=== PATIENT | female | born 1955 | race Caucasian/White ===

== ENCOUNTER → 2021-07-14 13:36 | Outpatient (CLI) | payer MEDICARE, SELFPAY ==
[2021-07-14 15:40] LABS: COVID19 -Nasal RAPID Negative (Negative)
== END ==
PROVIDERS: Visit Provider Physical Medicine & Rehabilitation
DX: Z20.822 Contact with and (suspected) exposure to COVID-19 (principal)
CPT/HCPCS: 87635; C9803

== ENCOUNTER 2021-07-17 08:30 | Day surgery (SDC) | payer MEDICARE, SELFPAY ==
[2021-07-02 09:47] VITALS: BMI 41.6
[2021-07-17] VITALS (12 sets, daily range): BP systolic 106–138; BP diastolic 49–75; PULSE 65–80; RESP 10–20; TEMP 35.8–36.4; O2SAT 95–100; BMI 41.6
[2021-07-17] MEDS: ACETAMINOPHEN 325 MG TABLET 975 MG PO (08:59)
[2021-07-17] MEDS: CELECOXIB 200 MG CAPSULE PO (09:00)
[2021-07-17] MEDS: PREGABALIN 75 MG CAPSULE PO (09:01)
[2021-07-17] MEDS: LACTATED RINGERS 1,000 ML 42 ML IV (09:40)
[2021-07-17] MEDS: VANCOMYCIN 1,000 MG/200 ML PIGGYBACK 200 MG IV (10:15)
--- NOTE | 2021-07-17 10:24 | PM.PREOP ---
Pre-operative Note COVID-19 COVID-19 status: Negative Interval Note History & Physical reviewed/Exam performed by Physician: Yes Changes to H&P: No
--- NOTE | 2021-07-17 10:35 | PM.OP.1 ---
Operative Date/Time/Diagnoses Date of procedure: 07/17/21 Time of procedure: 10:40 Pre-op diagnosis: left knee OA Post-op diagnosis: same Procedure & Clinicians Procedure: Left total knee arthroplasty Same procedure as scheduled: Yes Indications: The patient has had progressively worsening left knee pain with radiographic changes consistent with arthritis. Non-operative management has failed and the patient has requested total knee replacement. The risks, benefits and alternatives to surgery were discussed with the patient prior to proceeding. Risks discussed included, but were not limited to, failure to relieve pain, stiffness, infection, nerve damage, deep venous thrombosis, pulmonary embolism, stroke, coma, heart attack, permanent paralysis and , as well as the potential need for eventual revision of the prosthetic. Surgeon: Tana Myrick Sales Support Representative: Felicity Granger Anesthesia Type: General and Spinal Operative Notes Findings: Severe left knee OA, adequate stability Closure Type: primary Specimen(s): none sent Prosthetic devices, grafts, tissues, transplants, or devices: Myrick and nephew size 5 left femoral component, size 3 left tibia, +9 poly, 35 x 7-1/2 mm patella Applied: drain(s) Estimated Blood Loss (mL): 250 Blood products transfused: none Tourniquet time (min): 40 Procedure in detail: The patient was seen in the pre-operative area, where the patient identified the left knee as the operative site and this was marked with my initials. The patient received pre-operative antibiotics, and was taken to the operating room and placed on the operative table in the supine position. After satisfactory anesthesia, a night time nanny out was performed. The left leg was encircled with a tourniquet about the proximal thigh, and the leg was prepared from the toes to the tourniquet with ChloroPrep in the usual fashion and draped through sterile drapes. The leg was elevated and exsanguinated with Eschmark bandage and the tourniquet inflated to [250] mmHg pressure. The knee was approached through an approximately 18 cm incision centered over the patella and carried into the knee through a medial parapatellar arthrotomy. A portion of the medial and lateral meniscus was resected. Soft tissue was carefully mobilized around the patella the patella was measured with a caliper. Bone was resected from the patella and the patellar height was reconstituted with up an appropriate sized patellar component. A cover was then placed on the patella. A small amount of additional medial and lateral meniscus was resected. The distal femur was cut at 5?. A [+2] cut was used. It looked like an appropriate distal femoral cut and the cut was made without difficulty. An extramedullary guide was used for the tibial cut. 10 mm was resected off the least affected side.The tibia was prepared. The rotation was assessed. The patient was placed in extension residual medial and lateral meniscus as well as any residual bone was carefully resected. [No] additional tibia was resected. Hemostasis was achieved especially posteriorly. Additional local was injected into the posterior capsule. The extension gap was assessed and additional releases for gap balancing were performed as necessary. It was checked with the gap rotary shear worker helper. The femoral component was trial was placed and the notch was finished. The rotation was assessed and the appropriate size femoral guide was placed on the distal femur and finishing cuts were made. There was no evidence of notching. The anterior, posterior and chamfer cuts were then made. The posterior osteophytes and soft tissues were then removed. The posterior capsule was injected with part of a mixture of 60 ml 0.25% Marcaine mixed with 20 ml Exparel for post operative pain control. The remainder of this mixture was injected into the capsule and subcutaneous tissues during cement curing. The tibial and femoral components were then placed and the knee placed through a range of motion. Range of motion was [0-130], with good stability throughout the range. The trials were then removed, and the tibia was finished. The bone was prepared with pulsatile lavage, and dried with a sponge. Cement was applied and the final prosthetics placed. Excess cement was removed during and after cement curing. A brief Betadine soak was performed. After confirming there was no extruded cement posteriorly, the final tibial insert was placed. The knee was copiously irrigated and the tourniquet deflated. Hemostasis was obtained with the Bovie. A drain was placed and brought out superolaterally. The capsule was closed with interrupted nonabsorbable suture. The subcutaneous layer was closed with barbed sutures, and the skin with a running 3-0 V-Lock suture and skin juan carlos. A Lilian dressing was applied and the patient was taken to recovery having tolerated the procedure well. Complications: none Post-operative Condition: stable Disposition: Acute Care Plan for aftercare: The patient will be maintained on a standard total knee replacement protocol with weight bearing as tolerated. The patient will receive aspirin and sequential compression devices for DVT prophylaxis. The patient will be discharged home when safe for the home environment.
--- NOTE | 2021-07-17 11:00 | DI.RAD.S_ITS ---
PROCEDURE: XR KNEE LT 1TO2V INDICATIONS: LT TOTAL KNEE TECHNIQUE: 2 view(s) of the knee acquired. COMPARISON: None. FINDINGS: Bones: Patient is status post knee joint arthroplasty. Hardware components are in expected positions. Visualized bony structures are intact. Soft tissues: Overlying postoperative changes are noted. IMPRESSION: Postop changes from left total knee arthroplasty with anatomic left knee alignment. Dictated by: Hector Mcmanus M.D. on 07/17/2021 at 14:40 Approved by: Hector Mcmanus M.D. on 07/17/2021 at 14:40
[2021-07-17] MEDS: CEFAZOLIN 2 GM/20 ML SYRINGE IV ×2 (11:25→19:56)
[2021-07-17] MEDS: TRANEXAMIC ACID 1,000 MG VIAL 2000 MG INJ ×2 (11:27→13:05)
--- NOTE | 2021-07-17 11:39 | SUR.OPER ---
Supine on padded OR bed. Pillow under head, arms secured on padded armboards <90 degree abduction. Safety belt across torso. Non-operative leg secured with tape over blanket over lower leg. Operative leg secured in DeMayo positioner. Foam padded brace at thigh of operative leg.
[2021-07-17] MEDS: BUPIVACAINE 0.25% (PF) 60 ML, EPINEPHrine 0.3 MG INJ (11:43)
[2021-07-17] MEDS: BUPIVACAINE LIPOSOME 266 MG/20 ML VIAL INJ (11:44)
[2021-07-17] MEDS: HYDROMORPHONE 2 MG INJ IV (13:55)
[2021-07-17] MEDS: hydrOXYzine 50 MG/ML INJ 25 MG IM (13:55)
[2021-07-17] MEDS: ONDANSETRON 4 MG/2 ML INJ IV (13:55)
[2021-07-17] MEDS: OXYCODONE IR 5 MG TABLET PO (13:56)
[2021-07-17] MEDS: LACTATED RINGERS 1,000 ML 100 ML IV (15:26)
--- NOTE | 2021-07-17 16:34 | PC.NURSE ---
Admit note: Patient admitted from PACU to room 214, sleeping/drowsy but arouses easily. Received on O2 at 2L via NC, 95%. SCD's and IVF initiated on arrival. IS at bedside, unable to fully demonstrate until a more wakeful state. Oriented to room, environment, and plan of care. High fall risk precautions initiated, call light within reach.
[2021-07-17] MEDS: IBUPROFEN 400 MG TABLET PO ×2 (17:36→21:36)
[2021-07-17] MEDS: ATORVASTATIN 20 MG TABLET 10 MG PO (21:34)
[2021-07-17] MEDS: DOCUSATE 100 MG CAPSULE PO (21:34)
[2021-07-17] MEDS: ASPIRIN EC 81 MG TABLET PO (21:35)
[2021-07-17] MEDS: MONTELUKAST 10 MG TABLET PO (21:36)
[2021-07-17] MEDS: ACETAMINOPHEN 325 MG TABLET 650 MG PO (21:36)
[2021-07-17] MEDS: CALCIUM CARBONATE 500 MG TAB PO (22:54)
[2021-07-18 00:30] VITALS: BP 103/46; PULSE 76; RESP 14; TEMP 36.1; O2SAT 94
[2021-07-18] MEDS: IBUPROFEN 400 MG TABLET PO ×4 (00:38→12:25)
[2021-07-18] MEDS: LACTATED RINGERS 1,000 ML 100 ML IV (01:19)
[2021-07-18] MEDS: CEFAZOLIN 2 GM/20 ML SYRINGE IV (03:20)
[2021-07-18 04:45] VITALS: BP 107/50; PULSE 67; RESP 14; TEMP 36.1; O2SAT 100
[2021-07-18 06:06] LABS: Hematocrit 27.4 % (36-46); Hemoglobin 9.2 g/dL (12.0-16.0)
[2021-07-18 08:15] VITALS: BP 94/47; PULSE 69; RESP 16; TEMP 36; O2SAT 98
[2021-07-18] MEDS: DOCUSATE 100 MG CAPSULE PO (09:13)
[2021-07-18] MEDS: ACETAMINOPHEN 325 MG TABLET 650 MG PO ×2 (09:14→14:53)
[2021-07-18] MEDS: ASPIRIN EC 81 MG TABLET PO (09:14)
[2021-07-18] MEDS: SERTRALINE 50 MG TABLET 100 MG PO (09:14)
--- NOTE | 2021-07-18 10:17 | P.DS_ITS ---
History of Present Illness History of Present Illness Date Patient Seen: 07/18/21 Time Patient Seen: 09:00 Chief complaint: OPB Narrative: Operative Date/Time/Diagnoses Date of procedure: 07/17/21 Time of procedure: 10:40 Pre-op diagnosis: left knee OA Post-op diagnosis: same Procedure & Clinicians Procedure: Left total knee arthroplasty Same procedure as scheduled: Yes Indications: The patient has had progressively worsening left knee pain with radiographic changes consistent with arthritis. Non-operative management has failed and the patient has requested total knee replacement. The risks, benefits and alternatives to surgery were discussed with the patient prior to proceeding. Risks discussed included, but were not limited to, failure to relieve pain, stiffness, infection, nerve damage, deep venous thrombosis, pulmonary embolism, stroke, coma, heart attack, permanent paralysis and , as well as the potential need for eventual revision of the prosthetic. Surgeon: Tana Myrick Laborer Electroplating: Felicity Granger Anesthesia Type: General and Spinal Operative Notes Findings: Severe left knee OA, adequate stability Closure Type: primary Specimen(s): none sent Prosthetic devices, grafts, tissues, transplants, or devices: Myrick and nephew size 5 left femoral component, size 3 left tibia, +9 poly, 35 x 7-1/2 mm patella Applied: drain(s) Estimated Blood Loss (mL): 250 Blood products transfused: none Tourniquet time (min): 40 Discharge Providers Provider Date of admission: 07/17/2021 Discharge Date: 07/18/21 Primary care physician: Alex Young ND Consults: 07/17/21 07:46 Consult to Anesthesiology Routine Comment: Consulting Provider: Anesthesiologist Reason for consultation: Regional block for post operative pain control 07/17/21 08:38 Consult to Anesthesiology Routine Comment: Consulting Provider: Anesthesiologist Reason for consultation: Regional block for post operative pain control 07/17/21 12:24 Consult to Physician Routine Comment: consult to primary care provider for followup Consulting Provider: Tana Myrick Reason for consultation: Positive STOP BANG, management of obstructive sleep apnea Has provider been notified: Yes 07/17/21 13:42 Consult to Respiratory Therapy Evaluate & Treat Comment: s/p TKA w spinal morphine, JOSE/CPAP, obese Physician Instructions: Evaluate and treat 07/17/21 14:54 Consult to Discharge Planning Routine Comment: Consult to Physical Therapy Evaluate & Treat Comment: Physician Instructions: postop TKA protocol Consult to Respiratory Therapy Evaluate & Treat Comment: Physician Instructions: Evaluate and treat Discharge provider: Felicity Granger PA-C Summary Hospital Course Discharge Diagnosis: s/p L TKA Hospital Course: Ms Chow'fabiola hospital course was unremarkable. On POD# 1, she was feeling well and wanted to go home. She had been up to the bathroom multiple times and was voiding without difficulty. No N/V. Pain well-controlled with oral medications. She has her daughter and son-in-law at home for help. She was evaluated by PT prior to discharge. Exam Vital Signs (past 8 hours): - 07/18/ 04:45 07/18/21 08:15 Temperature 97.0 F L 96.8 F L Pulse Rate 67 69 Respiratory Rate 14 16 Blood Pressure 107/50 L 94/47 L Pulse Oximetry 100 98 Oxygen Delivery Method Nasal Cannula Oxygen Flow Rate 2 Narrative Exam Narrative: 5/5 strength in hip flexors, quadriceps, hamstrings, DF, PF, EHL bilaterally. Sensation intact throughout BLE. Calves soft, compressible, nontender and without palpable cords or masses. THOR dressing CDI. Objective Labs Result Diagrams: 07/18/21 05:40 Labs: Laboratory Results - last 24 hr 07/18/21 05:40 Hgb 9.2 L Hct 27.4 L PFSH Medical History (Updated 07/02/21 @ 10:[address] RN) Anesthesia Anxiety disorder Chronic bronchitis Chronic edema Depression Diabetes Essential tremor HLD (hyperlipidemia) Kidney stone JOSE (obstructive sleep apnea) Osteoarthritis Poor vision RBBB (right bundle branch block) Seasonal allergies Venous insufficiency (chronic) (peripheral) Surgical History (Updated 07/18/21 @ 10:13 by Felicity Granger PA-C) History of partial hysterectomy Hx of bariatric surgery (~2006) Hx of breast biopsy Social History household members: children Smoking Status: Never smoker alcohol intake: former Discharge Assessment & Plan Assessment and Plan Assessment: 1) POD# 1 S/p left total knee arthroplasty. 2) Acute anemia from expected blood loss during surgery. 3) Morbid obesity. Plan of Treatment: Discharge home w/ multimodal pain control, outpt PT. Discharge Plan Discharge Plan Patient Disposition: Home Discharge orders & Medications Discharge Orders: Discharge (Order); Ordered 07/18/21 Ordered By: Felicity Granger Prescriptions: New acetaminophen 325 mg Tablet 650 mg PO TID Qty: 90 2RF aspirin 81 mg Tablet,Delayed Release (Dr/Ec) 81 mg PO BID Qty: 90 0RF docusate sodium 100 mg Capsule 100 mg PO BID PRN (Reason: constipation) Qty: 60 2RF oxycodone 5 mg Tablet 5 mg PO Q4H PRN (Reason: pain, severe) Qty: 60 0RF Continued sertraline 100 mg Tablet 100 mg PO DAILY 0RF simvastatin 20 mg Tablet 20 mg PO BEDTIME 0RF ibuprofen 200 mg Tablet 600 mg PO QD-BID PRN (Reason: Pain) 0RF montelukast 10 mg Tablet 10 mg PO BEDTIME 0RF hydrochlorothiazide 25 mg Tablet 25 mg PO DAILY 0RF Ozempic 0.25 mg or 0.5 mg(2 mg/1.5 mL) Pen Injector 0.5 mg SUBCUT QWEEK 0RF Rx Instructions: for 4 doses Follow up/Referrals: Alex Young ARNP [Primary Care Provider] - Tana Myrick MD [Physician] - As previously scheduled (Follow up w/ Dr Myrick on 08/01/2021 @ 2:00 pm at [facility] in [place].) Diet/Activity/Treatments Diet: Diet as Tolerated Activity: Walk frequently! Cold/Heat Therapy: Ice to knee as needed for pain. Skin/Wound/Dressing Care Report to your healthcare provider any signs of infection, such as:: chills, fever, night sweats, increased pain, unusual drainage and unusual redness Dressing: May remove ABRAHAM wrap and shower. Leave THOR dressing in place until follow up appointment. When the battery expires after several days, it will beep, and you can detach the part of the tubing with the battery pack on it and throw it away. Visit Report/Discharge Packet Instructions: DI for Knee Replacement Stand Alone Forms: Surgery Discharge Discharge Data Primary Care Provider: Alex Young Attending Provider: Tana Myrick
[2021-07-18] MEDS: OXYCODONE IR 5 MG TABLET PO (10:33)
--- NOTE | 2021-07-18 10:47 | PT.IIE ---
Current Diagnoses Unilateral primary osteoarthritis, left knee (07/17/21) Presence of left artificial knee joint (07/17/21) Surgery Performed Operation Date: 07/17/21 10:45 Actual Procedures p Total Knee Arthroplasty(Left) - Tana Myrick MD Medical History (Last Updated 07/02/21 @ 10:[address] RN) Anesthesia Anxiety disorder Chronic bronchitis Chronic edema Depression Diabetes Essential tremor HLD (hyperlipidemia) Kidney stone JOSE (obstructive sleep apnea) Osteoarthritis Poor vision RBBB (right bundle branch block) Seasonal allergies Venous insufficiency (chronic) (peripheral) Physical Therapy Inpatient Evaluation/Re-Eval M1 PT/OT-IP Prior Functional Status Start: 07/18/21 13:36 Freq: NEEDED Status: Active Protocol: Document 07/18/21 10:47 AB (Rec: 07/18/21 13:49 AB [id number]) Medical Review Prior Functional Status Medical History Reviewed Yes Communication able to make needs known Mobility and Gait pt stated that she is independent with all mobilities and ambulation without AD Social History Household Members children Living Arrangements House Number of Floors (Floors) Two Floors Number of Stairs To Enter/Railing? pt will stay on main level of the house 1 platform step to porch + 3 steps L rail to enter the house Home Environment High Toilet,Tub/Shower Home Equipment Front Wheel Walker,Straight Cane,Hand Held Shower,Grab Bars In Shower Additional Social History Comment pt stated that she has her daughter to assist her M2 PT-IP Current Condition Start: 07/18/21 13:36 Freq: NEEDED Status: Active Protocol: Document 07/18/21 10:47 AB (Rec: 07/18/21 13:49 AB [email or web address]) Physical Therapy Current Condition Current Condition Evaluation Date 07/18/21 Treatment Diagnosis s/p L TKA; difficulty in walking Onset Date 07/17/21 M3 PT-IP Subjective Start: 07/18/21 13:36 Freq: NEEDED Status: Active Protocol: Document 07/18/21 10:47 AB (Rec: 07/18/21 13:49 AB [email or web address]) Subjective Physical Therapy Visit Type Type Initial Evaluation Visit Start Time 10:47 Visit Stop Time 11:45 Total Visit Minutes 58 Number of PROGRESSIVE ASSEMBLER AND FITTER Visits 0 Physical Therapy Visit Comments Patient Comments agreeable to do PT Therapy Pain Assessment Pain When Pain Assessed At Rest Pain Present Pain Present Pain Reported Location Left Knee Intensity 2 Scale Used Numeric (0 - 10) Pain Management Techniques Apply Cold,Elevation, Modification of Treatment,Re- positioning,Timing of Activity with Medications M4 PT-IP Mobility and Gait Start: 07/18/21 13:36 Freq: NEEDED Status: Active Protocol: Document 07/18/21 10:47 AB (Rec: 07/18/21 13:49 AB [id number]) PT-Bed Mobility Assessment Supine to Sit Supine to Sit Standby Assistance Sit to Supine Sit to Supine Standby Assistance PT-Transfer Assessment Sit to and From Stand Sit to and from Stand Standby Assistance,Contact Guard Assistance,1 Person Assistance,Use of Upper Extremities Equipment Transfer Assistive Device Gait Belt,Front Wheeled Walker Orthotic/Prosthetic Devices or Brace: No Transfers Transfer Destination Chair Transfer Technique ambulated Transfer Ability Level of Assist Standby Assistance,Contact Guard Assistance,1 Person Assistance,Use of Upper Extremities Comments Mobility Comments BP in supine: 117/48. pt completed supine to sit SBA. able to sit on EOB SBA. BP in sittin/48. no c/o dizziness. completed sit to stand CGA and ambulated in room using FWW SBA to CGA ~ 15 ft. pt sat on chair. BP checekd: 110/49. pt agreed to do stairs. completed sit to stand from the chair SBA and ambulated to the hallway ~ 125 ft using FWW SBA to occasional CGA. educated pt on stair climbing. pt completed up/down platform step using FWW CGA and completed 3 steps holding on to L rail with B hands CGA. tp stated that she is dizzy. assisted ack to her room. BP checked: 117/48. pt ambulated using FWW back to the bed SBA. completed sit to supine SBA. positioned pt in bed. call light and table placed within reach. Gait Assessment Gait Gait Assistance Required: Standby Assistance,Contact Guard Assist,1 Person Assist Distance (Feet) 125 Able to Maintain Weight Bearing Status Yes During Gait Assistive Devices Assistive Device Gait Belt,Front Wheeled Walker Orthotic/Prosthetic Devices or Brace: No Gait Deviations General Gait Pattern Decreased Stride Length, Decreased Feet Clearance Factors Limiting Gait Function Factors Limiting Gait Function Decreased Activity Tolerance, Decreased Strength,Limited Range of Motion,Pain,Poor Balance Stair Climbing Assessment Evaluation Level of Assist On Stairs Contact Guard Assistance Devices Stair Climbing Assistive Devices Left Railing Comments Stair Climbing Comments pls refer to mobility section for details PT-Balance Assessment Sitting Balance and Reactions Static Sitting Balance Ability Normal Dynamic Sitting Balance Ability Normal Standing Balance and Reactions Static Standing Balance Ability Good Dynamic Standing Balance Ability Fair Device Used FWW M5 PT-IP Objective Assessments Start: 07/18/21 13:36 Freq: NEEDED Status: Active Protocol: Document 07/18/21 10:47 AB (Rec: 07/18/21 13:49 AB [email or web address]) Orientation Orientation/Cognition Level of Alertness Alert Orientation Name,Place,Situation Language Function Ability No Deficits Noted Safety Awareness Decreased Safety Awareness Memory Description No Deficits Noted Gross Range of Motion Lower Extremity ROM Assessment Within Functional Limits Strength Lower Extremity Strength Assessment Left Impaired Hip 4/5 Knee 4-/5 Sensation Assessment Sensation Gross Sensation WNL Muscle Tone Muscle Tone WNL Yes M6 PT-IP Treatment Start: 07/18/21 13:36 Freq: NEEDED Status: Active Protocol: Document 07/18/21 10:47 AB (Rec: 07/18/21 13:49 AB [email or web address]) Physical Therapy Treatment Education Education Provided Precautions,Weight Bearing Status,Post-Op Packet,Safety M7 PT-IP Assessment and Plan Start: 07/18/21 13:36 Freq: NEEDED Status: Active Protocol: Document 07/18/21 10:47 AB (Rec: 07/18/21 13:49 AB [email or web address]) PT Summary Assessment and Plan Potential Rehabilitation Potential Good Status of Condition at Evaluation Stable Summary Impairments Pain,ROM,Strength,Balance, Coordination,Sensation,Tone, Cognition,Bed Mobility, Transfers,Gait,Activity Tolerance Assessment Summary pt requiring SBA to CGA with mobility using FWW. pt will have her daughter to assist her at home and may go home when medically stable. pt stated that she has outpt PT scheduled. Goals Bed Mobility Goal Independent Transfer Goal Independent,Front Wheeled Walker Gait Goal Independent,Front Wheel Walker Gait Distance 250 Other Goals up/down 1 platform step using FWW mod I up/down 3 steps L rail mod I Frequency of Treatment Frequency Of Treatment Twice a Day Treatment Plan Physical Therapy Treatment Plan Bed Mobility Training,Transfer Training,Gait Training, Therapeutic Exercise,Balance Retraining,Post Op Education, Discharge Planning,Hot or Cold Pack,Neuromuscular Re-ed, Coordination Retraining,Manual Therapy Weight Bearing Status Weight Bearing Status Weight Bear as Tolerated Allowed Weight Bearing Amount (enter % LLE WBAT or #) (%) Recommendations To Nursing Amount of Assist Needed 1 Person Assist Discharge Recommendations PT Discharge Recommendations Home with Assistance,Acute Rehab Transportation Needs at Discharge Private Vehicle
--- NOTE | 2021-07-18 11:18 | CM.DANOTE ---
DCP: Case received, EMR reviewed and met with patient. Introduced self and role. Was able to obtain information regarding patient's baseline activity level at home prior to surgery. DCP assessment completed with information currently available. Patient is a 66 year old female who admitted yesterday morning to the care of the orthopedic team. PCP: Dr. Young. Payer: confirmed: [facility]. Patient came to the hospital via private vehicle for a surgical procedure. Patient had left total knee arthroplasty. Patient has history of osteoarthritis. Met with patient in her room. She was sitting up in bed, alert and oriented. She resides in [place] with daughter, Charmaine. At her baseline, she is independent, and does have a cane for home use. P: Patient has discharge orders for home today, pending her working with physical therapy. Phyllis Moore RN/Television News Reporter Discharge Planning/Care Management CM Discharge Assessment Start: 07/18/21 11:17 Freq: Status: Active Protocol: Document 07/18/21 11:17 (Rec: 07/18/21 11:18 [id number]) Discharge Planning Assessment Assigned Harbor Tug Captain Phyllis Moore RN/Television News Reporter Advance Directives? No History Provided By Patient,Medical Record Prior Living Arrangements House Household Members children Type of transporation used prior to Drives own vehicle admit DME Already Rented / Owned Cane Patient/Family Preference OP PT Therapy Barriers to Discharge No Discharge Plan Home Transportation Arrangement Family Referrals Initiated None needed Whiteboard Updated in Patient Room with Yes name and ext. # of Harbor Tug Captain Review Status In Process Next Review Type Continued Stay Review Pre-Anesthesia Assessment Start: 07/02/21 09:47 Freq: Status: Complete Protocol: Document 07/02/21 09:47 CAB (Rec: 07/02/21 10:47 CAB [id number]) Pre-Anesthesia Assessment Patient Information Reviewed Via Phone Assessment Assessment Completed With Patient Diagnostic Results BMP/CMP,CBC,EKG Comment Outside labs/ECG scanned COVID screen 07/14/21 Primary Care Provider Alex Young Medical Clearance Received Yes Seen Specialist in Last 12 Months Yes Specialist Seen Orthopedist,Veterinary Radiologist Comment PCP visit w/clearance scanned Primary Language [facility] Mechanical Technician Required No Height 5 ft 3 in Weight 235 lb Body Mass Index (BMI) 41.6 Hearing Ability Normal Visual Assist Contacts,Glasses Dentition Type Teeth, Natural Present Barriers to Learning None Other Aids Yes: CPAP Hx Anesthesia Reactions Yes: Hard time waking up after bariatric sleeve surgery Hx Family Anesthesia Reaction Pt is adopted, family history unknown Hx Blood Transfusions Yes: Pt thinks so approx 50 years Hx Blood Transfusion Reaction No Anesthesia Review Requested No Printing Supervisor No alcohol intake former Smoking Status Never smoker Substance Use Type does not use Pain Present Pain Reported Musculoskeletal Symptoms Abnormal Gait,Difficulty Walking,Joint Pain History of Falling (Recent or History of No ) Patient is completely paralyzed or No completely immobile Prosthesis or Orthotic Device Cane Mental Status Oriented to own ability Is patient on oxygen? No Does patient have BISHOP/SOB No Hx Sleep Apnea Yes: BiPAP CPAP/BIPAP use prescribed and used routinely Will Bring CPAP/BIPAP DOS Yes Currently Taking a Beta Des No Hx Chest Pain No Hx SOB No Hx Syncope or Dizziness Yes: Slight dizziness Anti-Coagulant Therapy No Has a [place] Machine Operator No Cardiac Testing No Hx Pacemaker/ICD No Pacemaker Rep Required? No Cardiac Clearance Received Not Applicable Diet Type At Home Regular dysphagia No: Some of my pills get stuck in my throat Gastrointestinal Symptoms Constipation,Reflux Bladder Pattern Incontinent, Stress Urinary Catheter Present No Hx Urinary Self Catheterization No Diabetes Yes: Pt does not check blood sugars at home HgbA1C 7.0 Date 05/14/21 Patient No Lactating No Hx Drug Resistant Organism No Presence of External or Internal Medical Yes: Gastric sleeve, BiPAP Devices Have you had any close contact with Yes: Pt had COVID 2020 someone diagnosed with COVID-19? Are you experiencing any of these No symptoms symptoms? Received a COVID vaccine? Yes Received all doses? Yes Marital Status Lives With children Prior Living Arrangements House Support System Child/Children Does the Patient Have Assistance After Yes Surgery Patient Discharge Plan Description Return Home Comment Pt advised same day surgery Feels Safe in Current Environment Yes Been Physically Hurt or Threatened By a No Person in Current Environment Do you have thoughts of harming yourself None or others? Are you currently considering suicide? No Do you have a plan to hurt yourself or No Plan others? Do You Have Any Spiritual Beliefs That No May Affect Your HC Choices? Do You Have Any Cultural Practices That No May Affect Your HC Choices? Comment Yazidi Who Can We Speak to About Patient's Care Family, friends Identifying Code for Release of Patient Declines to issue Information Health Care Proxy/Next of Kin Papito (daughter) Health Care Proxy Emergency Contact Name Papito (daughter) Emergency Contact Advance Directives? No Power of Aeroplane Pilot Yes Power of Aeroplane Pilot Name Papito (daughter) Power of Aeroplane Pilot PAC Instructions Bring CPAP/BIPAP,Diabetes instructions,Do not shave/clip surgical site,Durable medical equipment,Medications to take /avoid,Nasal antibiotic,No ETOH/petroleum product on skin DOS,NPO,Post-op transportation,Pre-surgical wash,Sturdy shoes/comfortable clothes,Do not bring valuables and remove jewelry
--- NOTE | 2021-07-18 15:48 | PC.NURSE ---
Pt d/c at 1527. D/C teaching conducted with pt and daughter, all concerns and questions answered. pt transported on wheelchair.
== END 2021-07-18 15:51 | disposition home or self-care (01) ==
LOC: OR 08:35 → AC 08:35
PROVIDERS: PCP Registered Nurse; Referring Provider Nurse Practitioner Family; Visit Provider Orthopaedic Surgery
PROC: 0SRD0JZ Replacement of Left Knee Joint with Synthetic Substitute, Open Approach (ICD-10-PCS; CPT 27447; principal; 2021-07-17 10:45)
DX: M17.12 Unilateral primary osteoarthritis, left knee (principal); G47.33 Obstructive sleep apnea (adult) (pediatric); E78.5 Hyperlipidemia, unspecified; E11.9 Type 2 diabetes mellitus without complications; F32.9 Major depressive disorder, single episode, unspecified; E66.9 Obesity, unspecified; Z68.41 Body mass index [BMI] 40.0-44.9, adult
CPT/HCPCS: 27447; 36415; 73560; 82962; 85014; 85018; 94760; 97116; 97161; 97530; C1776; C1713; C9290; J0171; J0690; J1170; J2250; J2274; J2405; J2704; J3010; J3410